=== PATIENT | female | born 1990 | race Caucasian/White ===

== ENCOUNTER 2019-08-10 15:29 | Emergency (ER) | payer MEDICAID ==
[~2019-08-10] VITALS: Ht 162.6 cm; Wt 66.2 kg
[2019-08-10 15:40] VITALS: BP 145/95
--- NOTE | 2019-08-10 15:40 | NUR ---
BIBRA C/O LOWER BACK PAIN, HOMELESS, VERBALIZES SHE WANTS TO KILL HERSELF AND CAN'T HANDLE LIFE ANYMORE". TO ER BED 10, HOOKED TO MONITOR, CHANGED TO HOSP GOWN, PROVIDED W WARM BLANKET, DR KWAN AT BEDSIDE
--- NOTE | 2019-08-10 16:01 | NUR ---
SECURITY AT BEDSIDE FOR WANDING
--- NOTE | 2019-08-10 16:16 | NUR ---
ALL PT'S BELONGINGS WERE REMOVED AND PT WAS MOVED TO ER 13. SITTER IS AT THE BEDSIDE.
[2019-08-10 16:19] LABS: BASOPHILS % (AUTO) 0.7 % (0.0-2.0); EOSINOPHILS % (AUTO) 0.1 % (0.0-6.0); HEMATOCRIT 40 % (33-45); HEMOGLOBIN 13.7 g/dL (11.5-14.8); LYMPHOCYTES # (AUTO) 1.2 /CMM (0.8-4.8); LYMPHOCYTES % (AUTO) 24.9 % (20.0-44.0); MEAN CORPUSCULAR HGB CONC 34 g/dl (31.0-36.0); MEAN CORPUSCULAR VOLUME 95 fL (82-100); MONOCYTES # (AUTO) 0.5 /CMM (0.1-1.30); MONOCYTES % (AUTO) 11.1 % (2.0-12.0); NEUTROPHILS # (AUTO) 3.1 /CMM (1.8-8.9); NEUTROPHILS % (AUTO) 63.2 % (43.0-81.0); PLATELET COUNT (AUTO) 264 /CMM (150-450); RED BLOOD CELL COUNT(AUTO) 4.22 MIL/uL (4.0-5.2); WHITE BLOOD COUNT (AUTO) 4.9 K/uL (4.3-11.0)
--- NOTE | 2019-08-10 16:20 | NUR ---
pt refused to have the vital signs taken.
--- NOTE | 2019-08-10 16:21 | NUR ---
PT IS DRINKING WATER AND STATING THAT SHE CAN NOT GIVE A URINE SAMPLE AT THIS TIME, BECAUSE SHE "HAS NOTHING IN HER".
[2019-08-10 16:42] LABS: ALANINE AMINOTRANSFERASE 29 U/L (12-78); ALBUMIN 3.8 g/dL (3.4-5.0); ALCOHOL, BLOOD < 3 mg/dL (0-0); ALKALINE PHOSPHATASE 63 U/L (46-116); ASPARTATE AMINOTRANSFERASE 30 U/L (15-37); BILIRUBIN,DIRECT 0.1 mg/dL (0.0-0.2); BILIRUBIN,TOTAL 0.4 mg/dL (0.2-1.0); CALCIUM, SERUM 9.2 mg/dL (8.5-10.1); CARBON DIOXIDE 28 mmol/L (21-32); CHLORIDE 103 mmol/L (98-107); CREATININE 0.9 mg/dL (0.6-1.3); GLUCOSE 108 mg/dL (74-106); POTASSIUM 3.7 mmol/L (3.5-5.1); SODIUM SERUM 140 mmol/L (136-145); TOTAL PROTEIN, SERUM 8.1 g/dL (6.4-8.2); UREA NITROGEN, BLOOD 15 mg/dL (7-18)
[2019-08-10 16:48] LABS: ACETAMINOPHEN < 2 ug/ml (10-30); SALICYLATE 0.9 mg/dL (2.8-20.0)
--- NOTE | 2019-08-10 17:00 | NUR ---
PT DRANK ALL THE WATER, BUT IS STILL UNABLE TO GIVE A URINE SAMPLE. PT IS REC'ING MORE WATER.
--- NOTE | 2019-08-10 17:08 | NUR ---
pt ambulated to the bathroom with a steady gait. no s/s of pain or distress.
--- NOTE | 2019-08-10 17:10 | NUR ---
urine sample was obtained and sent to the lab.
[2019-08-10 17:57] LABS: APPEARANCE,URINE Clear (CLEAR); BILIRUBIN,URINE SMALL (NEGATIVE); BLOOD, URINE Trace-intact Ery/uL (NEGATIVE); COLOR,URINE Yellow (YELLOW); KETONES,URINE 15 (NEGATIVE); LEUKOCYTE ESTERASE ,URINE Small (NEGATIVE); NITRITE, URINE Negative (NEGATIVE); PH,URINE 5.5 (5.0-8.0); PROTEIN,URINE Negative (NEGATIVE); UGLUCOSE Negative (NEGATIVE)
[2019-08-10 18:13] LABS: BACTERIA,URINE 1+ /HPF (None Seen); SQUAMOUS EPITHELIAL CELL,UR Few /HPF (None Seen)
--- NOTE | 2019-08-10 18:15 | NUR ---
pt rec'd a food tray.
[2019-08-10] MEDS ORDERED: CEPHALEXIN MONOHYDRATE 500 MG CAPSULE PO ONE ×2 (18:30)
--- NOTE | 2019-08-10 18:47 | NUR ---
FELIZ DUENAS DNP CALLED RE: GETTING PT'S RX FILLED PRIOR TO LEAVING.
--- NOTE | 2019-08-10 19:35 | NUR ---
Pt was discharged with halfway package, treatment center information, TAP card, ACI w/ RX. Pt was instructed to return tomorrow morning to have his RX filled as per Corky Gross DNP. Pt refused to change into the clothes the pt came in stating: "they are sick clothes, I'm sick, I need to stay for [address] Fitzpatrick spoke to the pt and told the pt that they are discharged and to come back in the morning for the RX. Pt rec'd a pair of shoes, socks and a dross puller sweater. Pt ambulated/ran to the Nurse's station stating that they were being discharged incorrectly. Pt was hysterical, Security was with myself and the SWIMMING POOL ATTENDANT/sitter who were discharging the pt. Pt refused to change from the hospital gown into their own clothes in the ER, pt ambulated to the lobby and will change in the lobby bathroom.
--- NOTE | 2019-08-10 19:35 | NUR ---
pt refused to sign d/c paperwork and the homeless waiver. Paperwork was co-signed by RN.
== END 2019-08-10 19:56 | disposition home or self-care (01) ==
LOC: ER 15:30
DX: F19.10 Other psychoactive substance abuse, uncomplicated (principal); N39.0 Urinary tract infection, site not specified
CPT/HCPCS: 36415; 80048; 80076; 80305; 80307; 80329; 81001; 85025; 87086; 99283; G0480; 81000-TC

== ENCOUNTER 2022-04-02 16:41 | Emergency (ER) | payer MEDICAID, OTHER ==
[~2022-04-02] VITALS: Ht 170.2 cm; Wt 90.7 kg
[2022-04-02] MEDS ORDERED: IV NS 0.9% 1,000 ML BAG IV ONE ×3 (17:00→17:30)
[2022-04-02] MEDS ORDERED: KETOROLAC TROMETHAMINE INJ 30 MG/ML VIAL IV ONE (17:30)
[2022-04-02] MEDS ORDERED: KETOROLAC TROMETHAMINE INJ 30 MG/ML VIAL ONE (17:37)
--- NOTE | 2022-04-02 17:55 | NUR ---
COVID SWAB DONE AND SENT TO LAB
[2022-04-02] MEDS ORDERED: PIPERACILLIN /TAZOBACTAM 3.375 G in IV D5W 50 ML IV ONE (18:00)
[2022-04-02 18:14] LABS: BASOPHILS % (AUTO) 0.1 % (0.0-2.0); HEMATOCRIT 40 % (39-51); HEMOGLOBIN 13.4 g/dL (13.5-17.5); LYMPHOCYTES # (AUTO) 0.4 K/uL (0.8-4.8); LYMPHOCYTES % (AUTO) 7.2 % (20.0-44.0); MEAN CORPUSCULAR HGB CONC 34 g/dl (31.0-36.0); MEAN CORPUSCULAR VOLUME 92 fL (80-96); MONOCYTES # (AUTO) 0.6 K/uL (0.1-1.30); MONOCYTES % (AUTO) 11.5 % (2.0-12.0); NEUTROPHILS # (AUTO) 4.1 K/uL (1.8-8.9); NEUTROPHILS % (AUTO) 81.2 % (43.0-81.0); PLATELET COUNT (AUTO) 282 K/uL (150-450); RED BLOOD CELL COUNT(AUTO) 4.31 MIL/uL (4.5-6.0); WHITE BLOOD COUNT (AUTO) 5.1 K/uL (4.3-11.0)
[2022-04-02 18:30] LABS: ALBUMIN 3.1 g/dL (3.4-5.0); BILIRUBIN,DIRECT 0.1 mg/dL (0.0-0.2); BILIRUBIN,TOTAL 0.2 mg/dL (0.2-1.0); CALCIUM, SERUM 8.5 mg/dL (8.5-10.1); CREATININE 1.3 mg/dL (0.6-1.3); POTASSIUM 3.4 mmol/L (3.5-5.1)
--- NOTE | 2022-04-02 18:30 | NUR ---
MOVE SHEET SUBMITTED ALONG WITH CLINICALS.
--- NOTE | 2022-04-02 23:26 | NUR ---
PT ACCEPTED TO [facility] BY [facility]. ROOM 865-2. # FOR REPORT [phone]
--- NOTE | 2022-04-02 23:30 | NUR ---
[facility] CALLED FOR BLS GOING TO [facility]. PER [facility]ITY 90 MIN TO 2 HOURS
[2022-04-02 23:46] VITALS: BP 111/55
--- NOTE | 2022-04-03 00:32 | NUR ---
REPORT GIVEN TO COLLETTE RATLIFF FOR CONTINUATION OF CARE.
--- NOTE | 2022-04-03 00:53 | NUR ---
[facility] AT BEDSIDE FOR TRANSPORT.
--- NOTE | 2022-04-03 01:12 | NUR ---
PT PICKED UP BY [facility] FOR TRANSFER TO [facility]
== END 2022-04-03 01:26 | disposition short-term general hospital (02) ==
LOC: ER 17:06
DX: A41.9 Sepsis, unspecified organism (principal); K52.9 Noninfective gastroenteritis and colitis, unspecified; Z20.822 Contact with and (suspected) exposure to COVID-19; I45.10 Unspecified right bundle-branch block; R00.0 Tachycardia, unspecified; E87.1 Hypo-osmolality and hyponatremia; E87.6 Hypokalemia; E87.20 Acidosis, unspecified; Z59.01 Sheltered homelessness
CPT/HCPCS: 99291; 74176; 96365; 96361; 96375; 87426; 93005; 71045; 84145; 85025; 80048; 87040 ×2; 83605 ×2; 83690; 80076; 36415; 85730; J1885; J2543; J7060; J7030 ×3; C9803